=== PATIENT | male | born 1985 | race Two or more races ===

== ENCOUNTER 2016-12-11 19:51 | Emergency (ER) | payer SELFPAY ==
[~2016-12-11] VITALS: Ht 167.6 cm; Wt 83.9 kg
[2016-12-11 20:13] VITALS: BP 149/99
[2016-12-11] MEDS ORDERED: TETRACAINE 0.5% OPHTH SOLUTION 4ML BOTTLE. OS ONE (20:15)
[2016-12-11] MEDS ORDERED: EYE-STREAM OPHTH SOLUTION 120 ML BOTTLE. OS ONE (20:15)
[2016-12-11] MEDS ORDERED: FLUORESCEIN OPHTH TEST STRIP. OS ONE (20:15)
[2016-12-11] MEDS ORDERED: TETRACAINE 0.5% OPHTH SOLUTION 4ML BOTTLE. ONE (20:18)
[2016-12-11] MEDS ORDERED: OFLO5DRO OS (20:45)
[2016-12-11] MEDS ORDERED: TRAM-48 PO (20:45)
[2016-12-11] MEDS ORDERED: DIPHTH,PERTUSS(ACELL),TET TOX 0.5 ML DISP.SYRIN. VAX IM ONE (20:45)
--- NOTE | 2016-12-11 20:45 | PHYS DOC ---
Past Medical History Past Medical History: No Pertinent History Past Surgical History: No Surgical History Alcohol Use: None Drug Use: None Adult General Chief Complaint Chief Complaint: EYE PROBLEMS HPI HPI Patient is a 31 year old male presents to the emergency department stating that he was working with some metal last night when a piece of it into his eye. He states that he has been unable to get the metal piece out of the eye. Patient states that he has some pain and discomfort. He denies any blurred vision or any visual difficulty. Patient does not recall when his last tetanus immunization occurred. Review of Systems Review of Systems Constitutional: Denies fever or chills [] Eyes: Denies change in visual acuity, redness, and point of left eye pain HENT: Denies nasal congestion or sore throat [] Respiratory: Denies cough or shortness of breath [] Cardiovascular: No additional information not addressed in HPI [] GI: Denies abdominal pain, nausea, vomiting, bloody stools or diarrhea [] : Denies dysuria or hematuria [] Musculoskeletal: Denies back pain or joint pain [] Integument: Denies rash or skin lesions [] Neurologic: Denies headache, focal weakness or sensory changes [] Endocrine: Denies polyuria or polydipsia [] Current Medications Current Medications Current Medications Medications (Trade) Dose Ordered Sig/Bc Start Time Stop Time Status Last Admin Dose Admin Balanced Salt Solution (Eye-Stream) 120 ml 1X ONCE 12/11/16 20:15 12/11/16 20:20 DC 12/11/16 20:21 120 ML Fluorescein Sodium (Ful-Evette) 1 strip 1X ONCE 12/11/16 20:15 12/11/16 20:20 DC 12/11/16 20:21 1 STRIP Tetracaine HCl (Tetracaine) 1 drop 1X ONCE 12/11/16 20:15 12/11/16 20:20 DC 12/11/16 20:21 1 DROP Allergies Allergies Allergies Coded Allergies Type Severity Reaction Last Updated Verified No Known Drug Allergies 12/11/16 No Physical Exam Physical Exam Constitutional: Well developed, well nourished, no acute distress, non-toxic appearance. [] HENT: Normocephalic, atraumatic, bilateral external ears normal, oropharynx moist, no oral exudates, nose normal. [] Eyes: PERRLA, EOMI, conjunctiva normal, no discharge. Patient was noted to have a foreign body at the 7:00 area of the left eye. Neck: Normal range of motion, no tenderness, supple, no stridor. [] Cardiovascular:Heart rate regular rhythm, no murmur [] Lungs & Thorax: Bilateral breath sounds clear to auscultation [] Skin: Warm, dry, no erythema, no rash. [] Extremities: No tenderness, no cyanosis, no clubbing, ROM intact, no edema. [] Neurologic: Alert and oriented X 3, normal motor function, normal sensory function, no focal deficits noted. [] Psychologic: Affect normal, judgement normal, mood normal. [] Current Patient Data Vital Signs Vital Signs Date Time Temp Pulse Resp B/P (MAP) Pulse Ox O2 Delivery O2 Flow Rate FiO2 12/11/16 20:13 98.0 83 16 97 Room Air 98.0 EKG EKG [] Radiology/Procedures Radiology/Procedures [] Course & Med Decision Making Course & Med Decision Making Pertinent Labs and Imaging studies reviewed. (See chart for details) Tetracaine was placed into the left eye with fluorescein uptake noted. Patient was noted to have a foreign body at the number 7:00 area. Attempted to use the bur to remove the foreign body with patient unable to tolerate the procedure as well as unable to remain still. Patient will be referred to setter molding and coremaking machines tomorrow morning. Recommended following up as soon as possible. Patient will be provided with ofloxacin eyedrops. His tetanus immunization will be updated here in the emergency department. He will be provided with tramadol for pain and discomfort. He was instructed this medication will cause drowsiness do not take any if you need to be alert and oriented. Dragon Disclaimer Dragon Disclaimer This electronic medical record was generated, in whole or in part, using a voice recognition dictation system. Departure Departure Impression: Primary Impression: Foreign body of left eye Disposition: HOME, SELF-CARE Condition: STABLE Referrals: NO PCP (PCP) HALINA STORM MD Patient Instructions: Eye - Foreign Body, [id number] Additional Instructions: Activity as tolerated. Medications as prescribed. You may take Tylenol or ibuprofen for pain and discomfort. Tramadol for severe pain and discomfort this medication will cause drowsiness do not take any be alert and oriented. Mrs. advisable for you to use safety glasses whenever operating any type of equipment that may produce flying debris. Follow-up with ophthalmology tomorrow. Return back to emergency prior signs symptoms of become worse. Scripts Tramadol Hcl (ULTRAM) 50 Mg Tablet 1 TAB PO Q6HRS, #15 TAB Prov: MARLINE PHAM APRN 12/11/16 Ofloxacin (OCUFLOX) 5 Ml Drops 1-2 DROP OS BID, #1 BOTTLE Prov: MARLINE PHAM APRN 12/11/16 Problem Qualifiers Primary Impression: Foreign body of left eye Encounter type: initial encounter Qualified Codes: T15.92XA - Foreign body on external eye, part unspecified, left eye, initial encounter MARLINE PHAM APRN Dec 11, 2016 20:45
== END 2016-12-11 21:00 | disposition home or self-care (01) ==
LOC: ER 19:51
DX: T15.92XA Foreign body on external eye, part unspecified, left eye, initial encounter (principal)
CPT/HCPCS: 65205; 90471; 90715; 99284-25